=== PATIENT | male | born 1970 | race Caucasian/White ===

== ENCOUNTER 2022-05-16 16:22 | Emergency (ER) | payer OTHER, SELFPAY ==
[2022-05-16] VITALS (34 sets, daily range): BP systolic 116–205; BP diastolic 64–104; PULSE 81–109; RESP 16–36; TEMP 36.6–37.3; O2SAT 91–97
--- NOTE | ~2022-05-16 | CT_ITS ---
EXAMINATION: CT brain wo con DATE: 05/16/2022 17:15 INDICATION: Right sided weakness with numbness today. . TECHNIQUE: Computed tomography (CT) of the head was performed without intravenous contrast. The mA wa s adjusted according to patient size. Iterative reconstruction technique was employed. The dose-lengt h product was 605.33 mGy-cm. COMPARISON: None. FINDINGS: No acute intracranial hemorrhage or extra-axial fluid collection. No hydrocephalus, mass, or herniation. No acute ischemic infarct. Unremarkable dural venous sinus attenuation. No acute osseous abnormality. The aerated spaces are clear. Mild atrophy and chronic white matter change. Atherosclerotic intracranial calcification. 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 IMPRESSION: No acute intracranial process. Reviewed, dictated and finalized at location K. R MAIN INSPECTOR
--- NOTE | 2022-05-16 16:26 | ED.NEUROSD ---
HPI - Neuro Symptoms/Deficit General Chief Complaint: Weakness Stated Complaint: numbness to right abdomen and leg Time Seen by Provider: 05/16/22 16:25 Source: patient and RN notes reviewed Mode of arrival: ambulatory Limitations: no limitations History of Present Illness HPI Narrative: patient states that he went to bed last evening at 8:00 p.m.. He then woke up this morning at 8:00 a.m. and had numbness in his right abdomen right lower extremity right upper extremity mostly in his forearm and hand. He noticed some muscle wasting in his right hand that he says is new. He has not taken any of his blood pressure medicine for 2 months and just started taking blood pressure medicine yesterday. He is also a type 2 diabetic and not been on any medications for his diabetes in several months as well. He also has hyperlipidemia currently smoking 5 cigarettes per day. He also has stage III renal disease and peripheral neuropathy. He says he is not having any difficulty walking but does notice the right side of his body seems to be weaker than the left. He is not having any difficulty with speech. He denies any problems with mentation. Onset (ago): hour(s) (8) Location: right face, right arm and right leg History of same: No Severity: moderate Quality: weak and tingling Relieving factors: none Exacerbating factors: none Context: other ( unknown woke up this morning with symptoms) On Anticoagulants: No Associated symptoms: denies other symptoms Treatments Prior to Arrival: none Related Data Home Medications Medication Instructions Recorded Confirmed carvedilol 25 mg tablet 25 mg PO BID 05/16/22 05/16/22 furosemide 20 mg tablet 20 mg PO BID 05/16/22 05/16/22 lisinopril 40 mg tablet 40 mg PO DAILY 05/16/22 05/16/22 nifedipine 90 mg tablet,extended 90 mg PO DAILY 05/16/22 05/16/22 release spironolactone 25 mg tablet 25 mg PO DAILY 05/16/22 05/16/22 Allergies Allergy/AdvReac Type Severity Reaction Status Date / Time No Known Allergies Allergy Verified 05/16/22 16:50 Review of Systems Review of Systems: All systems reviewed & are unremarkable except as noted in HPI and below [facility] Past Medical History Medical History (Updated 05/17/22 @ 00:01 by Elizabeth Blanca) Hyperlipidemia Hypertension Morbid obesity Peripheral neuropathy Stage 3 chronic kidney disease Type 2 diabetes mellitus Surgical History Surgical History (Updated 05/16/22 @ 17:15 by Javan Vela MD) Hx of cholecystectomy Social History Social History (Updated 05/16/22 @ 16:33 by Javan Vela MD) Smoking packs per day: 0.25 Smoking cigarettes per day: 5.0 Smoking status: Current every day smoker Tobacco type: cigarettes Additional smoking assessment comments: patient states that he quit smoking for 17 years. Exam Const: General: healthy appearing, no acute distress and alert Nutritional Appearance: well nourished and obese Orientation/consciousness: patient oriented x3 Limitations: no limitations HENMT: Head: normal to inspection Ears: external ears normal Face/Nose/Sinus: Normal external nose present Mouth: Yes moist mucous membranes Eyes: Conjunctivae: conjunctivae normal Pupils: Equal, round and reactive pupils present EOM: EOMs intact bilaterally Neck: Neck: normal visual inspection Resp: Effort & Inspection: normal respiratory effort Auscultation: clear to auscultation bilaterally Cardio: Rate: tachycardic Rhythm: regular rhythm GI: GI Palp: Yes Soft to palpation and No Tenderness to palpation present (GI) Auscultation: normal bowel sounds Back/Spine/Pelvis: Cervical Spine: cervical ROM normal Thoracic/Lumbar Spine: thoraco-lumbar ROM normal Skin: General skin exam: normal color Rashes: no rashes Neuro: General: patient oriented x3, moves all extremities and CN's II-XI intact bilaterally Cranial nerves: Yes Nystagmus not present Speech: normal speech Course Consultations Consultation #1:
--- NOTE | 2022-05-16 16:47 | ECG_ITS ---
Measurements Intervals [place] Rate: 103 P: 18 GA: 147 QRS: -7 QRSD: 100 T: 110 QT: 330 QTc: 433 Interpretive Statements SINUS TACHYCARDIA LEFT VENTRICULAR HYPERTROPHY AND ST-T CHANGE BASELINE WANDER- V5-V6 BORDERLINE ECG NO PREVIOUS ECG AVAILABLE FOR COMPARISON Electronically Signed On 05-17-2022 6:45:15 SENIOR JAVASCRIPT ENGINEER by Ady Arnold D.O.
[2022-05-16 16:58] LABS: Hemoglobin 13.7 g/dL (14.0-18.0); Mean Corpuscular HGB Conc 33.4 g/dL (32.0-36.0); Mean Corpuscular Volume 86.9 fL (78.0-102.0); Mean Platelet Volume 9.7 fl (8.7-11.0); Platelet Count Result 183 K/mm3 (150-420); Red Blood Count 4.72 M/mm3 (4.70-6.10)
--- NOTE | 2022-05-16 16:58 | PC.NURSE ---
ASA HELD UNTIL HEAD CT RESULTS
--- NOTE | 2022-05-16 17:01 | PC.NURSE ---
PT TO CT AT THIS TIME. NO DYSPHAGIA AT THIS TIME DUE TO PT HAS FREQUENT DRY COUGH
[2022-05-16 17:13] LABS: Partial Thromboplastin Time 29.2 SEC (23.90-30.70); Prothrombin Time 11.2 Seconds (9.50-12.10)
[2022-05-16 17:15] LABS: Alanine Aminotransferase 27 U/L (16-63); Albumin Level 3.1 g/dL (3.4-5.0); Alkaline Phosphatase 105 U/L (46-116); Anion Gap 8 mmol/L (8-16); Aspartate Amino Transferase 29 U/L (15-37); Bilirubin,Total 0.2 mg/dL (0.00-1.00); Blood Urea Nitrogen 26 mg/dL (7-18); Calcium 8.1 mg/dL (8.5-10.1); Carbon Dioxide 28 mmol/L (21-32); Chloride 102 mmol/L (98-108); Estimated CRCL calculation 50 ml/min; Estimated Glomerular Filt Rate 32; Glucose 352 mg/dL (70-99); Osmolality Calculated 304 mOsm/kg (285-295); Potassium 4.1 mmol/L (3.5-5.1); Sodium 138 mmol/L (136-145); Total Protein 7.2 g/dL (6.4-8.2); Troponin I 17.2 ng/L (0.00-60.4)
[2022-05-16] MEDS: INSULIN HUMAN REGULAR (*BKC) 1,000 UNITS/10 ML VIAL 10 UNITS SUB-Q ×2 (17:18→19:17)
[2022-05-16] MEDS: cloNIDine HCL 0.1 MG TABLET 0.2 MG PO (17:20)
[2022-05-16 17:28] LABS: Band Neutrophils Percent 1 % (0-6); Basophils Absolute Manual 0.03 K/mm3 (0-0.1); Basophils Percent Manual 1 % (0-1); Eosinophils Absolute Manual 0.06 K/mm3 (0.02-0.5); Eosinophils Percent Manual 2 % (1-6); Lymphocytes Percent Manual 30 % (18-44); Monocytes Percent Manual 20 % (3-9); Neutrophils Absolute Manual 1.41 K/mm3 (1.3-6.7); Neutrophils Percent Manual 46 % (46-73); Total Cells Counted 100
[2022-05-16 17:29] LABS: Platelet Estimate Adequate (Adequate)
--- NOTE | 2022-05-16 17:29 | PC.NURSE ---
PT RETURNS FROM CT, HAS BEEN MEDICATED FOR ELEVATED BP AND BLOOD SUGAR, REPORTS BIG DATA ENGINEER IS OUT OF [facility].PT IS AWAITING CT RESULTS. NO CHANGE IN PT STATUS. WILL CONTINUE TO MONITOR.
[2022-05-16] MEDS: ASPIRIN 81 MG CHEWABLE TABLET 324 MG PO (17:32)
[2022-05-16 17:59] LABS: Influenza A QL RT-PCR Negative (Negative); Influenza B QL RT-PCR Negative (Negative); SARS-CoV-2 RNA PCR Negative (Negative)
--- NOTE | 2022-05-16 18:34 | PC.NURSE ---
PT AND FAMILY ARE AWARE OF PLAN OF CARE. PT HAS SIGNED TRANSFER PAPERWORK. FAMILY HAVE LEFT FOR THE EVENING, AWARE OF PLAN TO TRANSFER TO [facility]. PT IS AWAITING RETURN CALL FROM HOSPITALIST AND ROOM ASSIGNMENT. WILL CONTINUE TO MONITOR. NO CHANGE IN PT STATUS. PT CONTINUES TO REPORT NUMBNESS AND TINGLING TO RT FOREARM, HAND, ABD, THIGH. PT HAS CLEAR SPEECH NOTED, NO FACIAL DROOP IS PRESENT, HOWEVER WHEN PT PUFFS OUT HIS CHEEKS A DROOP IS NOTED TO LEFT SIDE. PT HAS A WEAKER SALES SERVICE REP TO RT HAND AND RT ARM AND LEG DO DRIFT WITH EXAM. NO CHANGES DURING ER VISIT. WILL CONTINUE TO MONITOR.
--- NOTE | 2022-05-16 18:44 | PC.NURSE ---
PT HAS BEEN ACCEPTED TO [facility] AWAITING ROOM ASSIGNMENT FOR TRANSFER.
--- NOTE | 2022-05-16 19:09 | PC.NURSE ---
Report received, pt resting and watching TV, has no c/o at this time. VSS, call gross at pt side. Awaiting call back from [facility] for bed assignment and report.
[2022-05-16] MEDS: BENZONATATE 100 MG CAPSULE 200 MG PO (19:14)
[2022-05-16 19:18] LABS: Glucose Point of Care 335 mg/dl (65-105)
[2022-05-16 20:03] LABS: Glucose Point of Care 308 mg/dl (65-105)
--- NOTE | 2022-05-16 20:04 | PC.NURSE ---
Call back to [facility], update given and awaiting call back for bed assignment and report. Pt resting, no changes in condition, no c/o.
--- NOTE | 2022-05-16 20:16 | PC.NURSE ---
Call back from [facility] bed and report given to Gisel, call paged to [facility] for pt transfer, VSS. Pt aware of POC for transfer.
== END 2022-05-16 19:40 | disposition short-term general hospital (02) ==
PROVIDERS: Emergency Provider Emergency Medicine; PCP Family Medicine
DX: I63.9 Cerebral infarction, unspecified (principal); E78.5 Hyperlipidemia, unspecified; I12.9 Hypertensive chronic kidney disease with stage 1 through stage 4 chronic kidney disease, or unspecified chronic kidney disease; E11.22 Type 2 diabetes mellitus with diabetic chronic kidney disease; N18.30 Chronic kidney disease, stage 3 unspecified; F17.210 Nicotine dependence, cigarettes, uncomplicated; Z20.822 Contact with and (suspected) exposure to COVID-19
CPT/HCPCS: 36415; 70450; 80053; 82948; 84484; 85025; 85610; 85730; 87636; 93005; 99284; 99285; A9270; J1815

== ENCOUNTER 2024-02-20 08:37 | Inpatient (IN) | payer MEDICARE, SELFPAY ==
--- NOTE | ~2024-02-20 | CT_ITS ---
EXAMINATION: CT pelvis wo con DATE: 02/20/2024 11:08 INDICATION: Right inguinal abscess. TECHNIQUE: Computed tomography (CT) of the pelvis was performed without intravenous contrast. Automat ed exposure control and iterative reconstruction technique were employed. The dose-length product was 567.82 mGy-cm. COMPARISON: None FINDINGS: There is diverticulosis of the colon without evidence of diverticulitis. There are no dilat ed loops of bowel. The appendix is normal. There are no pathologically enlarged lymph nodes. There is no free intraperitoneal fluid. There is fat stranding in the right inguinal region, consistent with cellulitis. Branching soft tissue attenuation in this area may be a sinus tract. There is moderate bhavya mbar spondylosis. IMPRESSION: 1. Cellulitis in the right inguinal region with possible sinus tract. No significant drainable absces s. Reviewed, dictated and finalized at location A. NT SERVICES ACCOUNT MANAGER IMPRESSION: 1. Cellulitis in the right inguinal region with possible sinus tract. No signif icant drainable abscess.
[2024-02-20 08:54] VITALS: BP 181/93; PULSE 95; RESP 18; TEMP 36.6; O2SAT 100
--- NOTE | 2024-02-20 09:21 | ED.SKABFB ---
HPI - Skin/Abscess/Foreign Bdy General Chief complaint: Skin/Abscess/Foreign Body <Rocio Posada PA-C - Last Filed: 02/20/24 12:47> Stated complaint: lower right abd knot and pain <MARIELA Hernandez Last Filed: 02/20/24 12:47> Time Seen by Provider: 02/20/24 09:02 <MARIELA Hernandez Last Filed: 02/20/24 12:47> Source: patient <MARIELA Hernandez Last Filed: 02/20/24 12:47> Mode of arrival: ambulatory <MARIELA Hernandez Last Filed: 02/20/24 12:47> Limitations: no limitations <MARIELA Hernandez Last Filed: 02/20/24 12:47> History of Present Illness HPI narrative: Patient is a 53-year-old male, with PMH of CKD, DM, who presents the ED with report of infection to his right inguinal region. Patient reports he 1st noticed a pimple like region to his right inguinal region/suprapubic region 6-7 days ago. He states began looking inflamed over the last couple of days. He saw his PCP 3 days ago and was given abx, but denies improvement. Unsure of name of abx. Reports increased pressure and redness extending toward scrotal region. Denies testicular pain or swelling. Denies difficulty urinating, penile drainage. Denies fevers. Patient has not been checking his sugars at home. <MARIELA Hernandez Last Filed: 02/20/24 12:47> Related Data Home medications: Home Medications Medication Instructions Recorded Confirmed carvedilol 25 mg tablet 25 mg PO BID 05/16/22 02/20/24 furosemide 20 mg tablet 20 mg PO BID 05/16/22 05/16/22 lisinopril 40 mg tablet 40 mg PO DAILY 05/16/22 05/16/22 nifedipine 90 mg tablet,extended 90 mg PO DAILY 05/16/22 05/16/22 release spironolactone 25 mg tablet 25 mg PO DAILY 05/16/22 05/16/22 empagliflozin 10 mg tablet 10 mg PO DAILY 02/20/24 02/20/24 (Jardiance) insulin glargine 100 unit/mL 15 unit subcut HS 02/20/24 02/20/24 subcutaneous solution (Lantus U-100 Insulin) <Rocio Posada PA-C - Last Filed: 02/20/24 12:47> Allergies/Adverse reactions: Allergies Allergy/AdvReac Type Severity Reaction Status Date / Time No Known Allergies Allergy Verified 02/20/24 13:54 <Rocio Posada PA-C - Last Filed: 02/20/24 12:47> Review of Systems Review of Systems: All systems reviewed & are unremarkable except as noted in HPI. <Rocio Posada PA-C - Last Filed: 02/20/24 12:47> All systems reviewed & are unremarkable except as noted in HPI and below <Rocio Posada PA-C - Last Filed: 02/20/24 12:47> [facility] Past Medical History Medical History: Medical History (Updated 02/20/24 @ 13:28 by Nemo Walton, WERO) Hyperlipidemia Hypertension Morbid obesity Peripheral neuropathy Stage 3 chronic kidney disease Type 2 diabetes mellitus <Rocio Posada PA-C - Last Filed: 02/20/24 12:47> Surgical History Surgical History: Surgical History Hx of cholecystectomy <Rocio Posada PA-C - Last Filed: 02/20/24 12:47> Social History Social History: Social History Smoking packs per day: 0.25 Smoking cigarettes per day: 5.0 Smoking status: Never smoker Tobacco type: cigarettes Additional smoking assessment comments: patient states that he quit smoking for 17 years. Alcohol intake: never Substance use: never Do You Feel Safe in your Home?: Yes Lack of Transportation: No Lack of Food: Never True Current Housing: I Have Housing Concerned About Future Housing: No Difficulty Paying Gas/Electric Bills: No Difficulty Paying for Meds: YES Currently Unemployed: No Education: Grade School Difficulty w/ Childcare or Family Care: No Spiritual care concerns: No <Rocio Posada PA-C - Last Filed: 02/20/24 12:47> Exam Narrative: GENERAL: Somewhat disheveled appearing, appears older than stated age, non-toxic, in no acute distress. HEAD: Normocephalic, atraumatic. RESPIRATORY: Airway patent, respirations nonlabored. Clear to auscultation bilaterally, no rales, rhonchi, wheezing. CARDIOVASCULAR: Regular rate and rhythm MUSCULOSKELETAL: Moves all extremities. No gross deformities. SKIN: Warm, dry, normal color. Right-sided inguinal/suprapubic region with scabbed pustular lesion with significant underlying induration, focal tenderness to palpation. No appreciable fluctuance. No active drainage. Erythema surrounding lesion and extending toward R lateral hip space, extending slightly into right-sided inguinal folds down towards scrotum. There does not appear to be any perineal erythema or inflammation. No swelling or erythema of scrotum. No penile drainage. Circumcised penis. NEURO: A&O X3. Speech clear. PSYCHIATRIC: Appropriate mood and affect. Normal interaction. <Rocio Posada PA-C - Last Filed: 02/20/24 12:47> Course SAWYER HELPER/PA Physician Supervision For this patient encounter, I reviewed the SAWYER HELPER or PA documentation, treatment plan, and medical decision making; and I had [id number] time with this patient. <Jorgito Krueger MD - Last Filed: 02/20/24 18:50> Vital Signs Vital signs: Vital Signs Temperature 97.8 F 02/20/24 08:54 Pulse Rate 95 02/20/24 08:54 Respiratory Rate 18 02/20/24 08:54 Blood Pressure 181/93 H 02/20/24 08:54 Pulse Oximetry 100 02/20/24 08:54 Temperature 98.0 F 02/20/24 14:00 Pulse Rate 100 02/20/24 14:00 Respiratory Rate 16 02/20/24 14:00 Blood Pressure 172/92 H 02/20/24 14:00 Pulse Oximetry 97 02/20/24 15:26 Oxygen Delivery Room Air 02/20/24 14:20 <Rocio Posada PA-C - Last Filed: 02/20/24 12:47> Vital Signs Temperature 97.8 F 02/20/24 08:54 Pulse Rate 95 02/20/24 08:54 Respiratory Rate 18 02/20/24 08:54 Blood Pressure 181/93 H 02/20/24 08:54 Pulse Oximetry 100 02/20/24 08:54 Temperature 98.0 F 02/20/24 14:00 Pulse Rate 100 02/20/24 14:00 Respiratory Rate 16 02/20/24 14:00 Blood Pressure 172/92 H 02/20/24 14:00 Pulse Oximetry 97 02/20/24 15:26 Oxygen Delivery Room Air 02/20/24 14:20 <Jorgito Krueger MD - Last Filed: 02/20/24 18:50> MDM - Skin/Abscess/Foreign Bdy MDM Narrative Medical decision making narrative: Patient presented to ED with infection to right inguinal region. Exam concerning for cellulitis with possible abscess formation. No significant palpable fluctuance appreciated on exam. Will obtain lab and imaging to further evaluate. Vital signs are stable. Patient is afebrile here. Mildly hypertensive. He does have history of this. Potentially pain related as well. Given pain medicine in the ED. CBC without leukocytosis. Hemoglobin stable but slightly low at 11. No recent records to compare to. CMP with mostly stable electrolytes, blood glucose mildly elevated to 153. Creatinine 2.7 today. patient does report history of CKD. No recent records to compare to. Records from last year did show creatinine of 2.1. Patient given fluids in the ED. Lactic acid WNL at 0.8. Inflammatory markers are elevated. CT pelvis was obtained and showing R inguinal cellulitis with sinus tracking. No evidence of drainable abscess. patient was updated on lab and imaging findings. Given presence of sinus tracking, failed outpatient therapy, in the setting of a poorly controlled diabetic, will admit for further evaluation cellulitis, IV antibiotics. Vancomycin started in the ED. Blood cultures were obtained. Discussed case with Nemo Walton NP hospitalist, accepted patient for admission. Patient in agreement with plan and need for admission. <Rocio oPsada PA-C - Last Filed: 02/20/24 12:47> Medical Records Attestation: I reviewed the patient's medical records. <Rocio Posada PA-C - Last Filed: 02/20/24 12:47> Lab Data Attestation: I reviewed the patient's lab results. <Rocio Posada PA-C - Last Filed: 02/20/24 12:47> Result diagrams: 02/20/24 10:11 02/20/24 10:11 <Rocio Posada PA-C - Last Filed: 02/20/24 12:47> Labs: Lab Results 02/20/24 02/20/24 Range/Units 10:10 10:11 WBC 6.3 (4.5-10.0) K/mm3 RBC 3.93 L (4.6-6.20) M/mm3 Hgb 11.0 L (14.0-18.0) g/dL Hct 34.0 L (42.0-52.0) % MCV 86.5 (80-100) fl MCH 28.0 (26-34) pg MCHC 32.4 (32-36) g/dl RDW 14.4 (11.5-14.5) % Plt Count 223 (150-375) k/mm3 MPV 9.3 (7.4-10.4) fl Immature Gran % (Auto) 0.5 (0-0.5) % Neut % (Auto) 76.7 H (45.5-73.1) % Lymph % (Auto) 9.9 L (18.3-44.2) % [place] % (Auto) 9.9 H (2.6-8.5) % Eos % (Auto) 2.4 (0-4.4) % Baso % (Auto) 0.6 (0.2-1.2) % Lymph # (Auto) 0.63 L (0.9-3.2) K/mm3 [place] # (Auto) 0.6 (0.1-0.6) K/mm3 Eos # (Auto) 0.2 (0-0.3) K/mm3 Baso # (Auto) 0.0 (0.0-0.1) K/mm3 Abs Immat Gran (auto) 0.03 (0.00-0.031) K/mm3 Absolute Neuts (auto) 4.9 (1.3-6.7) K/mm3 Absolute Nucleated RBC 0.000 (0.0-0.012) K/mm3 Nucleated RBC % 0.0 (0.0-0.2) % Sodium 136 L (137-145) mmol/L Potassium 4.2 (3.4-5.0) mmol/L Chloride 107 (98-107) mmol/L Carbon Dioxide 21 L (22-30) mmol/L Anion Gap 8 (4-12) mmol/L BUN 42 H (9-20) mg/dL Creatinine 2.70 H (0.7-1.3) mg/dL Estim Creat Clear Calc 30 ml/min Estimated GFR 25 L (59 - ) Glucose 153 H (65-110) mg/dL Hemoglobin A1c Pending Lactic Acid 0.8 (0.7-2.0) mmol/L Calcium 8.2 L (8.4-10.2) mg/dL Total Bilirubin 0.5 (0.2-1.3) mg/dL AST 12 L (17-59) U/L ALT 7 (6-50) U/L Alkaline Phosphatase 96 (38-126) U/L C-Reactive Protein 12.9 H (<1.0) mg/dL Total Protein 7.0 (6.3-8.2) g/dL Albumin 3.8 (3.5-5.1) g/dL <Rocio Posada PA-C - Last Filed: 02/20/24 12:47> Lab Results 02/20/24 02/20/24 Range/Units 10:10 10:11 WBC 6.3 (4.5-10.0) K/mm3 RBC 3.93 L (4.6-6.20) M/mm3 Hgb 11.0 L (14.0-18.0) g/dL Hct 34.0 L (42.0-52.0) % MCV 86.5 (80-100) fl MCH 28.0 (26-34) pg MCHC 32.4 (32-36) g/dl RDW 14.4 (11.5-14.5) % Plt Count 223 (150-375) k/mm3 MPV 9.3 (7.4-10.4) fl Immature Gran % (Auto) 0.5 (0-0.5) % Neut % (Auto) 76.7 H (45.5-73.1) % Lymph % (Auto) 9.9 L (18.3-44.2) % [place] % (Auto) 9.9 H (2.6-8.5) % Eos % (Auto) 2.4 (0-4.4) % Baso % (Auto) 0.6 (0.2-1.2) % Lymph # (Auto) 0.63 L (0.9-3.2) K/mm3 [place] # (Auto) 0.6 (0.1-0.6) K/mm3 Eos # (Auto) 0.2 (0-0.3) K/mm3 Baso # (Auto) 0.0 (0.0-0.1) K/mm3 Abs Immat Gran (auto) 0.03 (0.00-0.031) K/mm3 Absolute Neuts (auto) 4.9 (1.3-6.7) K/mm3 Absolute Nucleated RBC 0.000 (0.0-0.012) K/mm3 Nucleated RBC % 0.0 (0.0-0.2) % Sodium 136 L (137-145) mmol/L Potassium 4.2 (3.4-5.0) mmol/L Chloride 107 (98-107) mmol/L Carbon Dioxide 21 L (22-30) mmol/L Anion Gap 8 (4-12) mmol/L BUN 42 H (9-20) mg/dL Creatinine 2.70 H (0.7-1.3) mg/dL Estim Creat Clear Calc 30 ml/min Estimated GFR 25 L (59 - ) Glucose 153 H (65-110) mg/dL Hemoglobin A1c Pending Lactic Acid 0.8 (0.7-2.0) mmol/L Calcium 8.2 L (8.4-10.2) mg/dL Total Bilirubin 0.5 (0.2-1.3) mg/dL AST 12 L (17-59) U/L ALT 7 (6-50) U/L Alkaline Phosphatase 96 (38-126) U/L C-Reactive Protein 12.9 H (<1.0) mg/dL Total Protein 7.0 (6.3-8.2) g/dL Albumin 3.8 (3.5-5.1) g/dL <Jorgito Krueger MD - Last Filed: 02/20/24 18:50> Imaging Data Attestation: I personally reviewed and interpreted this imaging study as follows: <MARIELA Hernandez Last Filed: 02/20/24 12:47> Radiologist's impression: ITS Impressions Pelvis CT 02/20/24 11:19 IMPRESSION: 1. Cellulitis in the right inguinal region with possible sinus tract. No significant drainable abscess. <MARIELA Hernandez Last Filed: 02/20/24 12:47> Discharge Plan Discharge Clinical Impression: Cellulitis of right groin, NICOLE (acute kidney injury) Diabetes mellitus Qualifiers: Diabetes mellitus type: type 2 Diabetes mellitus manager long term care insulin use: with manager long term care use Diabetes mellitus complication status: with hyperglycemia Qualified Code(s): E11.65 - Type 2 diabetes mellitus with hyperglycemia <MARIELA Hernandez Last Filed: 02/20/24 12:47> Patient Disposition: Still a Patient <MARIELA Hernandez Last Filed: 02/20/24 12:47> Condition: Stable <MARIELA Hernandez Last Filed: 02/20/24 12:47>
[2024-02-20] MEDS: ONDANSETRON INJ 4 MG/2 ML VIAL IV PUSH (10:21)
[2024-02-20] MEDS: MORPHINE SULFATE (*CRX) 4 MG/ML INJ IV PUSH (10:23)
[2024-02-20 10:28] LABS: Basophils Percent Auto 0.6 % (0.2-1.2); Eosinophils Absolute Auto 0.2 K/mm3 (0-0.3); Eosinophils Percent Auto 2.4 % (0-4.4); Immature Granulocyte Absolute 0.03 K/mm3 (0.00-0.031); Immature Granulocyte Percent A 0.5 % (0-0.5); Lymphocytes Absolute Auto 0.63 K/mm3 (0.9-3.2); Lymphocytes Percent Auto 9.9 % (18.3-44.2); Mean Corpuscular HGB Conc 32.4 g/dl (32-36); Mean Corpuscular Volume 86.5 fl (80-100); Mean Platelet Volume 9.3 fl (7.4-10.4); Monocytes Absolute Auto 0.6 K/mm3 (0.1-0.6); Monocytes Percent Auto 9.9 % (2.6-8.5); Neutrophils Absolute Auto 4.9 K/mm3 (1.3-6.7); Neutrophils Percent Auto 76.7 % (45.5-73.1); Platelet Count Result 223 k/mm3 (150-375); Red Blood Count 3.93 M/mm3 (4.6-6.20); Red Cell Distribution Width 14.4 % (11.5-14.5); White Blood Count 6.3 K/mm3 (4.5-10.0)
[2024-02-20 10:46] LABS: Lactic Acid Reflex 0.8 mmol/L (0.7-2.0)
[2024-02-20 10:49] LABS: Alanine Aminotransferase 7 U/L (6-50); Albumin Level 3.8 g/dL (3.5-5.1); Alkaline Phosphatase 96 U/L (38-126); Anion Gap 8 mmol/L (4-12); Aspartate Amino Transferase 12 U/L (17-59); Bilirubin,Total 0.5 mg/dL (0.2-1.3); Blood Urea Nitrogen 42 mg/dL (9-20); Calcium 8.2 mg/dL (8.4-10.2); Carbon Dioxide 21 mmol/L (22-30); Chloride 107 mmol/L (98-107); Estimated CRCL calculation 30 ml/min; Estimated Glomerular Filt Rate 25; Glucose 153 mg/dL (65-110); Potassium 4.2 mmol/L (3.4-5.0); Sodium 136 mmol/L (137-145)
[2024-02-20 11:09] LABS: CRP 12.9 mg/dL (<1.0)
[2024-02-20] MEDS: SODIUM CHLORIDE 0.9% IV 1,000 ML 999 ML IV CONT (11:10)
[2024-02-20] MEDS: VANCOMYCIN 1,500 MG/NS 500 ML 1,500 MG/500 ML BAG 250 MG IVPB (12:41)
--- NOTE | 2024-02-20 12:42 | PC.NURSE ---
Pt reports 0/10 pain and no nausea at this time. PRNs not administered d/t pt. condition.
[2024-02-20 12:44] VITALS: BP 119/105; PULSE 99; RESP 16; O2SAT 99
--- NOTE | 2024-02-20 13:19 | PM.IMHP ---
H&P: HPI History of Present Illness Date/Time: 02/20/24 13:19 Chief Complaint: Skin Redness and Pain, Abdominal Pain Narrative: 53 y/o M presents here with complaints of a right abdominal not and pain with PMH of hyperlipidemia, hypertension, obesity, peripheral neuropathy, CKD D stage III, and type 2 diabetes. The patient presents here from home for further evaluation of right lower abdominal pain and sensation of a knot in same region. He reports he initially noted a pimple-like region to his right inguinal/suprapubic region approximately 6-7 days ago. He initially tried to pop region. He was able to express a small amount of white fluid. Same region then began to develop erythema and increased tenderness. He initially sought care with his PCP on 02/17 (Mon). He was given a shot of penicillin and prescribed an oral course of abx (nothing listed in outside med rec), filled script yesterday and has taken 3 doses. Despite antibiotic use, the region has had no improvement in redness, tenderness, or size. He has now also developed pressure and erythema that is tracking towards his scrotal region. No associated testicular pain, testicular swelling, fever, dysuria, discharge, chills, or body aches. Has had a previous skin infection years ago, told it was MRSA. Patient has a history of type 2 diabetes for which he is on Jardiance and Lantus. The patient reports he does not regularly check his blood sugar at home. Reports that once a month he will travel and will not take his diabetes medications for a week. Patient is also supposed to be on Lantus but reports he is unable to afford this medication at this time. He reported to the bedside RN that his insurance showed kick in next week some time and he should be able to fill this. Last dose of Lantus was over a week ago. Patient follows with a assembly repairer, believes her name is Sophia. Has previously been told that he is Stage 4 and one stage away from dialysis. Sees Josh MICHELE for his endocrine care. Initial VS at presentation: 97.8? F, HR 95, RR 18, 181/93, and 100% on RA. ED workup showed: No leukocytosis, hemoglobin 11.0, creatinine 2.7 and GFR 25 (previously 2.14 and GFR 32 in 04/2022), calcium 8.2, glucose 153, CRP 12.9. Pelvic CT showed cellulitis of the right ankle region with possible sinus tract, no significant drainable abscess. Review of Systems Review of Systems: All systems reviewed & are unremarkable except as noted in HPI and below PMFSH Past Medical History Medical History (Updated 02/20/24 @ 13:28 by Nemo Walton APRN) Hyperlipidemia Hypertension Morbid obesity Peripheral neuropathy Stage 3 chronic kidney disease Type 2 diabetes mellitus Surgical History Surgical History Hx of cholecystectomy Social History Social History Smoking packs per day: 0.25 Smoking cigarettes per day: 5.0 Smoking status: Never smoker Tobacco type: cigarettes Additional smoking assessment comments: patient states that he quit smoking for 17 years. Alcohol intake: never Substance use: never Do You Feel Safe in your Home?: Yes Lack of Transportation: No Lack of Food: Never True Current Housing: I Have Housing Concerned About Future Housing: No Difficulty Paying Gas/Electric Bills: No Difficulty Paying for Meds: YES Currently Unemployed: No Education: Grade School Difficulty w/ Childcare or Family Care: No Spiritual care concerns: No Meds Home Medications and Allergies Home Medications Medication Instructions Recorded Confirmed Type carvedilol 25 mg tablet 25 mg PO BID 05/16/22 02/20/24 History furosemide 20 mg tablet 20 mg PO BID 05/16/22 05/16/22 History lisinopril 40 mg tablet 40 mg PO DAILY 05/16/22 05/16/22 History nifedipine 90 mg tablet,extended 90 mg PO DAILY 05/16/22 05/16/22 History release spironolactone 25 mg tablet 25 mg PO DAILY 05/16/22 05/16/22 History empagliflozin 10 mg tablet 10 mg PO DAILY 02/20/24 02/20/24 History (Jardiance) insulin glargine 100 unit/mL 15 unit subcut HS 02/20/24 02/20/24 History subcutaneous solution (Lantus U-100 Insulin) Allergies Allergy/AdvReac Type Severity Reaction Status Date / Time No Known Allergies Allergy Verified 02/20/24 13:54 Vital Signs Vital Signs - 24 hr 02/20/24 08:54 02/20/24 12:44 Temperature 97.8 F Pulse Rate 95 99 Respiratory Rate 18 16 Blood Pressure 181/93 H 119/105 H Pulse Oximetry 100 99 Exam Const: General: comfortable and no acute distress Other: , male, nontoxic appearance HENMT: Face/Nose/Sinus: Normal nares present Mouth: Yes moist mucous membranes Eyes: General: appearance normal, both eyes and all related structures Sclera: sclerae normal Pupils: Equal, round and reactive pupils present EOM: EOMs intact bilaterally Resp: Effort & Inspection: normal respiratory effort Auscultation: clear to auscultation bilaterally Cardio: Rate: regular rate Rhythm: regular rhythm Other: S1-S2 present without murmur, rub, ectopy GI: Other: Abdomen soft, nondistended, nontender. Normoactive bowel sounds in all quadrants. Skin: General skin exam: normal color and no rashes or lesions noted Wounds: wounds noted Other: Indurated region to right pubic region without groin involvement or streaking. Linear shape running vertically. Approximately 5-6vwy9-2ml. No open regions or drainage. Mild erythema.+tenderness. Neuro: General: gait normal Speech: normal speech Motor exam (neuro): 5/5 motor strength present throughout Sensory Exam: normal sensation Other: A&O x4 Extrem: General: normal to inspection Psych: Mental Status: mental status grossly normal Affect: normal affect Other: Fair insight and judgment, pleasant H&P: Results Labs Labs: Short CBC 02/20/24 Range/Units 10:11 WBC 6.3 (4.5-10.0) K/mm3 Hgb 11.0 L (14.0-18.0) g/dL Hct 34.0 L (42.0-52.0) % Plt Count 223 (150-375) k/mm3 [facility] 02/20/24 10:11 Sodium 136 L Potassium 4.2 Chloride 107 Carbon Dioxide 21 L BUN 42 H Creatinine 2.70 H Glucose 153 H Calcium 8.2 L Liver Function 02/20/24 Range/Units 10:11 Total Bilirubin 0.5 (0.2-1.3) mg/dL AST 12 L (17-59) U/L ALT 7 (6-50) U/L Alkaline Phosphatase 96 (38-126) U/L Albumin 3.8 (3.5-5.1) g/dL Assessment and Plan Assessment and plan (1) Cellulitis of right groin: Code(s): L03.314 - Cellulitis of groin Status: Acute Assessment and Plan: - did not meet SIRS criteria, HR only. lactic 0.8. blood cultures were obtained, follow. - CT pelvis: cellulitis in the right inguinal region with possible sinus tract. No significant drainable abscess. - WBC 6.3, CRP 12.9. trend. - started on Vancomycin on 02/19 - wound culture if obtainable, no open wound at present - tight glycemic control (2) Acute kidney injury superimposed on CKD: Code(s): N17.9 - Acute kidney failure, unspecified; N18.9 - Chronic kidney disease, unspecified Status: Acute Assessment and Plan: - unclear if NICOLE superimposed on CKD verses patient's baseline, most recent lab work over a year ago - creatinine 2.7 and GFR 25, previously 2.14 and GFR 32 on 05/16/2022 - add CK, urine sodium, urine protein, urine creatinine, protein/creatinine - UA ordered - bladder scan for postvoid residual - monitor I&Os - will hold on nephrology consultation given this is likely patient's baseline with his history of CKD stage 4 - trend renal function - trend electrolytes, correct as needed (3) Diabetes mellitus: Qualifiers: Diabetes mellitus complication status: with hyperglycemia Diabetes mellitus long term care administrator insulin use: with long term care administrator use Diabetes mellitus type: type 2 Qualified Code(s): E11.65 - Type 2 diabetes mellitus with hyperglycemia; Z79.4 - exterminator (current) use of insulin Code(s): E11.9 - Type 2 diabetes mellitus without complications Status: Chronic Assessment and Plan: - hypoglycemia protocol - POC blood glucose ACHS - home medication: Jardiance 10 mg daily, Lantus 15 units HS - correct regimen ordered - moderate dose TIDWM, based off BMI - A1C ordered, none on file - nurse informatics educator consulted for re-education (4) Hypertension: Qualifiers: Hypertension type: unspecified Qualified Code(s): I10 - Essential (primary) hypertension Code(s): I10 - Essential (primary) hypertension Status: Chronic Assessment and Plan: - chronic, currently 119/105 - continue home medications: Carvedilol 25 mg b.i.d. - monitor Plan Diet: Diabetic GI Prophylaxis: Not currently indicated DVT Prophylaxis: SCDs Lines: Peripheral Code Status: Full code Quality VTE Prophylaxis VTE prophylaxis: mechanical ordered Hospitalist MIPS Advance Care Plan I have confirmed that the patient's Advanced Care Plan is present, code status is documented, or surrogate decision maker is listed in patient medical record.: Yes Medication Reconciliation I have utilized all available resources to obtain, update and review the patients current medications (includes all prescriptions, OTC, herbals, cannabis, and nutritional supplements).: Yes
[2024-02-20 13:40] VITALS: BMI 30.7
--- NOTE | 2024-02-20 13:40 | ADMGEN ---
This patient, Tate Quick, was admitted to [facility] Surg Room 304-02. Patient/family oriented to hospital policies and general routines including ID bracelet, bed and alarms, visiting hours, pain management, procedures, bathroom and other care routines, personal items, smoking policy, room service/diet, and visiting hours. Information on how to activate the Rapid Response Team has been discussed. Patient/Family are encouraged to report perceived risks to care and to ask questions if they do not understand what they are told or what they should do.
[2024-02-20 14:00] VITALS: BP 172/92; PULSE 100; RESP 16; TEMP 36.7; O2SAT 88
--- NOTE | 2024-02-20 14:11 | PC.NURSE ---
Patient unsure of medications during admission. He thinks that he takes Jardiance and Carvedolol, but he wasn't positive. He also told me that he did not have any financial concerns, and then told me that he was unable to afford his lantus until his insurance kicks in next month. 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
[2024-02-20] MEDS: HYDROcodone/acetaminophen (*CRX) 5-325 MG TABLET 1 TAB PO ×2 (14:25→20:53)
[2024-02-20 14:49] LABS: Creatine Kinase 37 U/L (55-170)
[2024-02-20 15:26] VITALS: O2SAT 97
[2024-02-20 16:15] VITALS: BMI 30.7
[2024-02-20 17:02] LABS: Glucose Point of Care 114 mg/dl (65-105)
[2024-02-20] MEDS: carvediloL 25 MG TABLET PO (17:12)
[2024-02-20 18:35] LABS: Add Urine Microscopic? YES; Appearance Urine Clear (Clear); Bacteria Urine None Seen /hpf; Bilirubin Urine Negative (Negative); Blood Urine Negative (Negative); Color Urine Yellow (Yellow); Glucose Urine UA Trace mg/dL (Negative); Ketones Urine Negative (Negative); Leukocyte Esterase Ur Negative LEU/UL (Negative); Nitrate Urine Negative (Negative); Non Pathogenic Casts 0-2; Protein Urine 3+ mg/dL (Negative); RBC Urine 0-2 /hpf (0-2); Specific Grav Ur 1.016 (1.001-1.035); Squamous Epithelial Cell Urine None Seen /hpf (Few); Urobilinogen Urine 0.2 mg/dL (<2.0); WBC Urine 0-5 /hpf (0-3); pH Urine 5.5 (5.0-9.0)
[2024-02-20 18:41] LABS: Creatinine Urine 77.6 mg/dL
[2024-02-20 18:43] LABS: Sodium Urine Random 124 meq/L
[2024-02-20 18:58] LABS: Total Protein Urine Random 340 mg/dL
[2024-02-20 20:26] LABS: Glucose Point of Care 200 mg/dl (65-105)
[2024-02-20] MEDS: INSULIN GLARGINE (*BKC) 100 UNITS/ML 15 UNITS SUB-Q (20:30)
[2024-02-20 22:00] VITALS: BP 112/49; PULSE 75; RESP 16; TEMP 36.4; O2SAT 97
[2024-02-20 22:38] LABS: Hemoglobin A1C 6.3 % (<5.7)
[2024-02-21 05:55] VITALS: BP 159/70; PULSE 89; RESP 18; TEMP 36.4; O2SAT 99
[2024-02-21 06:27] LABS: Basophils Absolute Auto 0.1 K/mm3 (0.0-0.1); Basophils Percent Auto 1.3 % (0.2-1.2); Eosinophils Absolute Auto 0.2 K/mm3 (0-0.3); Eosinophils Percent Auto 3.2 % (0-4.4); Hematocrit 31.5 % (42.0-52.0); Hemoglobin 9.9 g/dL (14.0-18.0); Immature Granulocyte Absolute 0.02 K/mm3 (0.00-0.031); Immature Granulocyte Percent A 0.4 % (0-0.5); Lymphocytes Absolute Auto 0.71 K/mm3 (0.9-3.2); Lymphocytes Percent Auto 15.3 % (18.3-44.2); Mean Corpuscular HGB Conc 31.4 g/dl (32-36); Mean Corpuscular Hemoglobin 27.7 pg (26-34); Mean Corpuscular Volume 88.2 fl (80-100); Mean Platelet Volume 9.1 fl (7.4-10.4); Monocytes Absolute Auto 0.5 K/mm3 (0.1-0.6); Monocytes Percent Auto 11.4 % (2.6-8.5); Neutrophils Absolute Auto 3.2 K/mm3 (1.3-6.7); Neutrophils Percent Auto 68.4 % (45.5-73.1); Platelet Count Result 201 k/mm3 (150-375); Red Blood Count 3.57 M/mm3 (4.6-6.20); Red Cell Distribution Width 14.5 % (11.5-14.5); White Blood Count 4.7 K/mm3 (4.5-10.0)
[2024-02-21] MEDS: HYDROcodone/acetaminophen (*CRX) 5-325 MG TABLET 1 TAB PO ×3 (06:32→18:41)
--- NOTE | 2024-02-21 06:46 | PC.NURSE ---
Pt has been noncompliant with using urinal, or letting us know when he needs to or has urinated, bladder shows 315ml, he reports he just went to the bathroom, Im not here for my bladder, just leave me alone .
[2024-02-21 06:57] LABS: Anion Gap 6 mmol/L (4-12); Blood Urea Nitrogen 43 mg/dL (9-20); CRP 6.6 mg/dL (<1.0); Calcium 8.1 mg/dL (8.4-10.2); Carbon Dioxide 23 mmol/L (22-30); Chloride 108 mmol/L (98-107); Estimated CRCL calculation 29 ml/min; Estimated Glomerular Filt Rate 20; Glucose 104 mg/dL (65-110); Potassium 4.7 mmol/L (3.4-5.0); Sodium 137 mmol/L (137-145)
[2024-02-21 07:50] LABS: Glucose Point of Care 97 mg/dl (65-105)
[2024-02-21] MEDS: carvediloL 25 MG TABLET PO ×2 (09:02→16:58)
[2024-02-21] MEDS: EMPAGLIFLOZIN 10 MG TABLET PO (09:02)
--- NOTE | 2024-02-21 09:32 | P.PNIM_ITS ---
Progress Note: A&P Assessment and Plan (1) Cellulitis of right groin: Code(s): L03.314 - Cellulitis of groin Status: Acute Assessment and Plan: - did not meet SIRS criteria, HR only. lactic 0.8. blood cultures were obtained, follow. - CT pelvis: cellulitis in the right inguinal region with possible sinus tract. No significant drainable abscess. - WBC 6.3, CRP 12.9. trend. - started on Vancomycin on 02/19-continue - wound culture if obtainable, no open wound at present - tight glycemic control will see if need to consult surgery for I/d (2) Acute kidney injury superimposed on CKD: Code(s): N17.9 - Acute kidney failure, unspecified; N18.9 - Chronic kidney disease, unspecified Status: Acute Assessment and Plan: - unclear if NICOLE superimposed on CKD verses patient's baseline, most recent lab work over a year ago - creatinine 2.7 and GFR 25, previously 2.14 and GFR 32 on 05/16/2022 - add CK, urine sodium, urine protein, urine creatinine, protein/creatinine - UA ordered - bladder scan for postvoid residual - monitor I&Os - will hold on nephrology consultation given this is likely patient's baseline with his history of CKD stage 4 - trend renal function - trend electrolytes, correct as needed (3) Diabetes mellitus: Qualifiers: Diabetes mellitus complication status: with hyperglycemia Diabetes mellitus lead manufacturing technician insulin use: with lead manufacturing technician use Diabetes mellitus type: type 2 Qualified Code(s): E11.65 - Type 2 diabetes mellitus with hyperglycemia; Z79.4 - family readiness support assistant (current) use of insulin Code(s): E11.9 - Type 2 diabetes mellitus without complications Status: Chronic Assessment and Plan: - hypoglycemia protocol - POC blood glucose ACHS - home medication: Jardiance 10 mg daily, Lantus 15 units HS - correct regimen ordered - moderate dose TIDWM, based off BMI - A1C ordered, none on file - supervisor partial denture department consulted for re-education (4) Hypertension: Qualifiers: Hypertension type: unspecified Qualified Code(s): I10 - Essential (primary) hypertension Code(s): I10 - Essential (primary) hypertension Status: Chronic Assessment and Plan: - chronic, currently 119/105 - continue home medications: Carvedilol 25 mg b.i.d. - monitor Plan Diet: Diabetic GI Prophylaxis: Not currently indicated DVT Prophylaxis: SCDs Lines: Peripheral Code Status: Full code Time Spent With Patient Time with patient: Greater than 35 minutes Subjective Date/time seen: 02/21/24 09:32 Interval history: 53 y/o M presents here with complaints of a right abdominal not and pain with PMH of hyperlipidemia, hypertension, obesity, peripheral neuropathy, CKD D stage III, and type 2 diabetes. The patient presents here from home for further evaluation of right lower abdominal pain and sensation of a knot in same region. He reports he initially noted a pimple-like region to his right inguinal/suprapubic region approximately 6-7 days ago. He initially tried to pop region. He was able to express a small amount of white fluid. Same region then began to develop erythema and increased tenderness. He initially sought care with his PCP on 02/17 (Mon). He was given a shot of penicillin and prescribed an oral course of abx (nothing listed in outside med rec), filled script yesterday and has taken 3 doses. Despite antibi otic use, the region has had no improvement in redness, tenderness, or size. He has now also developed pressure and erythema that is tracking towards his scrotal region. No associated testicular pain, testicular swelling, fever, dysuria, discharge, chills, or body aches. Has had a previous skin infection years ago, told it was MRSA. Patient has a history of type 2 diabetes for which he is on Jardiance and Lantus. The patient reports he does not regularly check his blood sugar at home. Reports that once a month he will travel and will not take his diabetes medications for a week. Patient is also supposed to be on Lantus but reports he is unable to afford this medication at this time. He reported to the bedside RN that his insurance showed kick in next week some time and he should be able to fill this. Last dose of Lantus was over a week ago. Patient follows with a senior cyber intelligence analyst, believes her name is Sophia. Has previously been told that he is Stage 4 and one stage away from dialysis. Sees Josh MICHELE for his endocrine care. Initial VS at presentation: 97.8? F, HR 95, RR 18, 181/93, and 100% on RA. ED workup showed: No leukocytosis, hemoglobin 11.0, creatinine 2.7 and GFR 25 ( previously 2.14 and GFR 32 in 04/2022), calcium 8.2, glucose 153, CRP 12.9. Pelvic CT showed cellulitis of the right ankle region with possible sinus tract, no significant drainable abscess. 02/20- pt is seen and examined. pain is controlled. Review of Systems Review of Systems: All systems reviewed & are unremarkable except as noted in HPI and below Exam Narrative: induration and mild erythema to right pubic region not involving the groin. +tenderness. no drainage or open wounds. [id number] Const: General: comfortable and no acute distress Other: , male, nontoxic appearance HENMT: Face/Nose/Sinus: Normal nares present Mouth: Yes moist mucous membranes Eyes: General: appearance normal, both eyes and all related structures Sclera: sclerae normal Pupils: Equal, round and reactive pupils present EOM: EOMs intact bilaterally Resp: Effort & Inspection: normal respiratory effort Auscultation: clear to auscultation bilaterally Cardio: Rate: regular rate Rhythm: regular rhythm Other: S1-S2 present without murmur, rub, ectopy GI: Other: Abdomen soft, nondistended, nontender. Normoactive bowel sounds in all quadrants. Skin: General skin exam: normal color, no rashes or lesions noted and wounds noted Wounds: wounds noted Other: Indurated region to right pubic region without groin involvement or streaking. Linear shape running vertically. Approximately [id number]. No open regions or drainage. Mild erythema.+tenderness. Neuro: General: gait normal Cranial nerves: Yes Equal, round and reactive pupils present Speech: normal speech Motor exam (neuro): 5/5 motor strength present throughout Sensory Exam: normal sensation Other: A&O x4 Extrem: General: normal to inspection Psych: Mental Status: mental status grossly normal Affect: normal affect Other: Fair insight and judgment, pleasant Objective Data Vital Signs Vital Signs: Vital Signs - 24 hr 02/20/24 12:44 02/20/24 14:20 02/20/24 14:00 Temperature 98.0 F Pulse Rate 99 100 Respiratory Rate 16 16 Blood Pressure 119/105 H 172/92 H Pulse Oximetry 99 88 L Oxygen Delivery Room Air 02/20/24 15:26 02/20/24 20:00 02/20/24 22:00 Temperature 97.5 F L Pulse Rate 75 Respiratory Rate 16 Blood Pressure 112/49 L Pulse Oximetry 97 97 Oxygen Delivery Room Air 02/21/24 05:55 Temperature 97.5 F L Pulse Rate 89 Respiratory Rate 18 Blood Pressure 159/70 H Pulse Oximetry 99 Oxygen Delivery Intake/Output Intake/Output: Intake & Output 02/18/24 02/19/24 02/20/24 02/21/24 23:59 23:59 23:59 23:59 Intake Total 2212 Output Total 600 Balance 1612 Meds/Results Medications: Active Medications Generic Name Dose Route Start Last Admin Trade Name Freq PRN Reason Stop Dose Admin Acetaminophen 650 mg 02/20/24 12:34 Acetaminophen 325 Mg Tablet PO Q6H PRN Mild Pain (1-3) or Fever Hydrocodone Bitart/Acetaminophen 1 tab 02/20/24 12:34 02/21/24 06:32 Hydrocodone/Acetaminophen (*Crx) 5-325 Mg Tablet PO 1 tab Q6H PRN Administration Pain Rated 4-6 Carvedilol 25 mg 02/20/24 17:00 02/21/24 09:02 Carvedilol 25 Mg Tablet PO 25 mg BID EDISON Administration Dextrose 12.5 gm 02/20/24 12:34 Dextrose 50% 25 Gm/50 Ml Syringe IV PUSH PRN PRN Hypoglycemia Protocol Empagliflozin 10 mg 02/21/24 09:00 02/21/24 09:02 Empagliflozin 10 Mg Tablet PO 10 mg DAILY EDISON Administration Glucagon 1 mg 02/20/24 12:34 Glucagon For Inj 1 Mg Vial IM PRN PRN Hypoglycemia Protocol Glucose 15 gm 02/20/24 12:34 Glucose Oral Gel 15 Gm Of Glucse In 37.5 Gm Tube PO PRN PRN Hypoglycemia Protocol Dextrose 1,000 mls @ 100 mls/hr 02/20/24 12:34 Dextrose 5% 1,000 Ml IVPB PRN PRN Hypoglycemia Protocol Vancomycin HCl 1,500 mg in 500 mls @ 250 mls/hr 02/22/24 01:00 Vancomycin 1,500 Mg/Ns 500 Ml IVPB Q36H [facility] Insulin Aspart 3 - 6 units 02/20/24 17:00 02/21/24 07:54 Insulin Aspart (*Bkc) 100 Units/Ml SUB-Q Not Given TIDWM [facility] Protocol Insulin Glargine 15 units 02/20/24 21:00 02/20/24 20:30 Insulin Glargine (*Bkc) 100 Units/Ml SUB-Q 15 units HS EIDSON Administration Ondansetron HCl 4 mg 02/20/24 12:34 Ondansetron Inj 4 Mg/2 Ml Vial IV PUSH Q6H PRN Nausea And Vomiting Radiology Results: ITS Impressions Pelvis CT 02/20/24 11:19 IMPRESSION: 1. Cellulitis in the right inguinal region with possible sinus tract. No significant drainable abscess. Labs Labs: Laboratory Results - last 24 hr 02/20/24 02/20/24 02/20/24 10:10 10:11 14:09 WBC 6.3 RBC 3.93 L Hgb 11.0 L Hct 34.0 L MCV 86.5 MCH 28.0 MCHC 32.4 RDW 14.4 Plt Count 223 MPV 9.3 Immature Gran % (Auto) 0.5 Neut % (Auto) 76.7 H Lymph % (Auto) 9.9 L [place] % (Auto) 9.9 H Eos % (Auto) 2.4 Baso % (Auto) 0.6 Lymph # (Auto) 0.63 L [place] # (Auto) 0.6 Eos # (Auto) 0.2 Baso # (Auto) 0.0 Abs Immat Gran (auto) 0.03 Absolute Neuts (auto) 4.9 Absolute Nucleated RBC 0.000 Nucleated RBC % 0.0 Sodium 136 L Potassium 4.2 Chloride 107 Carbon Dioxide 21 L Anion Gap 8 BUN 42 H Creatinine 2.70 H Estim Creat Clear Calc 30 Estimated GFR 25 L Glucose 153 H POC Capillary Glucose Hemoglobin A1c 6.3 H Lactic Acid 0.8 Calcium 8.2 L Total Bilirubin 0.5 AST 12 L ALT 7 Alkaline Phosphatase 96 Total Creatine Kinase 37 L C-Reactive Protein 12.9 H Total Protein 7.0 Albumin 3.8 Urine Color Urine Appearance Urine pH Ur Specific [place] Urine Protein Urine Glucose (UA) Urine Ketones Ur Blood (Man) Urine Nitrate Urine Bilirubin Urine Urobilinogen Leukocyte Esterase Rfl Urine RBC Urine WBC Ur Squamous Epith Cells Urine Bacteria Urine Casts U Random Total Protein Ur Random Sodium Urine Creatinine Protein/Creat Ratio 2 02/20/24 02/20/24 02/20/24 16:58 18:23 18:23 WBC RBC Hgb Hct MCV MCH MCHC RDW Plt Count MPV Immature Gran % (Auto) Neut % (Auto) Lymph % (Auto) [place] % (Auto) Eos % (Auto) Baso % (Auto) Lymph # (Auto) [place] # (Auto) Eos # (Auto) Baso # (Auto) Abs Immat Gran (auto) Absolute Neuts (auto) Absolute Nucleated RBC Nucleated RBC % Sodium Potassium Chloride Carbon Dioxide Anion Gap BUN Creatinine Estim Creat Clear Calc Estimated GFR Glucose POC Capillary Glucose 114 H Hemoglobin A1c Lactic Acid Calcium Total Bilirubin AST ALT Alkaline Phosphatase Total Creatine Kinase C-Reactive Protein Total Protein Albumin Urine Color Yellow Urine Appearance Clear Urine pH 5.5 Ur Specific [place] 1.016 Urine Protein 3+ H Urine Glucose (UA) Trace H Urine Ketones Negative Ur Blood (Man) Negative Urine Nitrate Negative Urine Bilirubin Negative Urine Urobilinogen 0.2 Leukocyte Esterase Rfl Negative Urine RBC 0-2 Urine WBC 0-5 Ur Squamous Epith Cells None seen Urine Bacteria None seen Urine Casts 0-2 U Random Total Protein Cancelled 340 Ur Random Sodium 124 Urine Creatinine Cancelled Protein/Creat Ratio 2 02/20/24 02/20/24 02/21/24 18:23 20:22 06:22 WBC 4.7 RBC 3.57 L Hgb 9.9 L Hct 31.5 L MCV 88.2 MCH 27.7 MCHC 31.4 L RDW 14.5 Plt Count 201 MPV 9.1 Immature Gran % (Auto) 0.4 Neut % (Auto) 68.4 Lymph % (Auto) 15.3 L [place]son % (Auto) 11.4 H Eos % (Auto) 3.2 Baso % (Auto) 1.3 H Lymph # (Auto) 0.71 L [place]son # (Auto) 0.5 Eos # (Auto) 0.2 Baso # (Auto) 0.1 Abs Immat Gran (auto) 0.02 Absolute Neuts (auto) 3.2 Absolute Nucleated RBC 0.000 Nucleated RBC % 0.0 Sodium 137 Potassium 4.7 Chloride 108 H Carbon Dioxide 23 Anion Gap 6 BUN 43 H Creatinine 3.20 H Estim Creat Clear Calc 29 Estimated GFR 20 L Glucose 104 POC Capillary Glucose 200 H Hemoglobin A1c Lactic Acid Calcium 8.1 L Total Bilirubin AST ALT Alkaline Phosphatase Total Creatine Kinase C-Reactive Protein 6.6 H Total Protein Albumin Urine Color Urine Appearance Urine pH Ur Specific [place] Urine Protein Urine Glucose (UA) Urine Ketones Ur Blood (Man) Urine Nitrate Urine Bilirubin Urine Urobilinogen Leukocyte Esterase Rfl Urine RBC Urine WBC Ur Squamous Epith Cells Urine Bacteria Urine Casts U Random Total Protein Ur Random Sodium Urine Creatinine 77.6 Protein/Creat Ratio 2 Cancelled 02/21/24 07:41 WBC RBC Hgb Hct MCV MCH MCHC RDW Plt Count MPV Immature Gran % (Auto) Neut % (Auto) Lymph % (Auto) Anson % (Auto) Eos % (Auto) Baso % (Auto) Lymph # (Auto) [place] # (Auto) Eos # (Auto) Baso # (Auto) Abs Immat Gran (auto) Absolute Neuts (auto) Absolute Nucleated RBC Nucleated RBC % Sodium Potassium Chloride Carbon Dioxide Anion Gap BUN Creatinine Estim Creat Clear Calc Estimated GFR Glucose POC Capillary Glucose 97 Hemoglobin A1c Lactic Acid Calcium Total Bilirubin AST ALT Alkaline Phosphatase Total Creatine Kinase C-Reactive Protein Total Protein Albumin Urine Color Urine Appearance Urine pH Ur Specific [place] Urine Protein Urine Glucose (UA) Urine Ketones Ur Blood (Man) Urine Nitrate Urine Bilirubin Urine Urobilinogen Leukocyte Esterase Rfl Urine RBC Urine WBC Ur Squamous Epith Cells Urine Bacteria Urine Casts U Random Total Protein Ur Random Sodium Urine Creatinine Protein/Creat Ratio 2 Quality VTE Prophylaxis VTE prophylaxis: mechanical ordered
[2024-02-21 11:41] LABS: Glucose Point of Care 220 mg/dl (65-105)
[2024-02-21 14:00] VITALS: BP 141/59; PULSE 74; RESP 14; TEMP 36.5; O2SAT 98
--- NOTE | 2024-02-21 16:38 | PM.CNGS ---
Assessment and Plan Assessment and plan (1) Cellulitis of right groin: Code(s): L03.314 - Cellulitis of groin Status: Acute Assessment and Plan: Cellulitis in the right inguinal area. CT scan with no abscess. No obvious fluctuance on exam, all induration at this time. Continue IV antibiotics. Will continue to monitor. (2) Diabetes mellitus: Qualifiers: Diabetes mellitus complication status: with hyperglycemia Diabetes mellitus penitentiary insulin use: with penitentiary use Diabetes mellitus type: type 2 Qualified Code(s): E11.65 - Type 2 diabetes mellitus with hyperglycemia; Z79.4 - nursing home (current) use of insulin Code(s): E11.9 - Type 2 diabetes mellitus without complications Status: Chronic (3) Acute kidney injury superimposed on CKD: Code(s): N17.9 - Acute kidney failure, unspecified; N18.9 - Chronic kidney disease, unspecified Status: Acute (4) Hypertension: Qualifiers: Hypertension type: unspecified Qualified Code(s): I10 - Essential (primary) hypertension Code(s): I10 - Essential (primary) hypertension Status: Chronic Plan I have discussed the patient's case and plan of care with Dr. Hernandez. History of Present Illness Consult details Consult date: 02/21/24 Reason for consult: other (Possible groin abscess) Requesting physician: Cira Sánchez APRN Narrative: This is a 53-year-old man with PMH of CKD, diabetes, who presented to the ED with complaints of swelling and pain in his right inguinal area. He initially noticed some pain in this area about a week ago. He continued to have pain in this location and felt like he could see a small pimple in this area. He picked at the pimple and expressed a small amount of pus about 5 days ago. Otherwise, this area has not been draining. He saw his PCP 3 days ago and was given oral antibiotics but had no improvement. Discussing with the staff, the patient is apparently non compliant and will stop taking his diabetic medications for a week at a time. He also stopped taking Lantus as he could not afford it. Workup in the ED showed a normal white blood cell count, and acute on chronic renal failure. Pelvis CT showed cellulitis in the right inguinal region with possible sinus tract, no drainable abscess. Patient was admitted and started on IV antibiotics. He is now seen on the medical floor. Denies any previous abscess or skin infection. No previous surgeries or hernia repairs in his groin. Review of Systems Review of Systems: All systems reviewed & are unremarkable except as noted in HPI and below PMFSH Past Medical History Medical History Hyperlipidemia Hypertension Morbid obesity Peripheral neuropathy Stage 3 chronic kidney disease Type 2 diabetes mellitus Surgical History Surgical History History of ventral hernia repair Hx of cholecystectomy Social History Social History Smoking packs per day: 0.25 Smoking cigarettes per day: 5.0 Smoking status: Never smoker Tobacco type: cigarettes Additional smoking assessment comments: patient states that he quit smoking for 17 years. Alcohol intake: never Substance use: never Do You Feel Safe in your Home?: Yes Lack of Transportation: No Lack of Food: Never True Current Housing: I Have Housing Concerned About Future Housing: No Difficulty Paying Gas/Electric Bills: No Difficulty Paying for Meds: YES Currently Unemployed: No Education: Grade School Difficulty w/ Childcare or Family Care: No Spiritual care concerns: No Meds Home Medications and Allergies Home Medications Medication Instructions Recorded Confirmed Type carvedilol 25 mg tablet 25 mg PO BID 05/16/22 02/20/24 History furosemide 20 mg tablet 20 mg PO BID 05/16/22 05/16/22 History lisinopril 40 mg tablet 40 mg PO DAILY 05/16/22 05/16/22 History nifedipine 90 mg tablet,extended 90 mg PO DAILY 05/16/22 05/16/22 History release spironolactone 25 mg tablet 25 mg PO DAILY 05/16/22 05/16/22 History empagliflozin 10 mg tablet 10 mg PO DAILY 02/20/24 02/20/24 History (Jardiance) insulin glargine 100 unit/mL 15 unit subcut HS 02/20/24 02/20/24 History subcutaneous solution (Lantus U-100 Insulin) Allergies Allergy/AdvReac Type Severity Reaction Status Date / Time No Known Allergies Allergy Verified 02/20/24 13:54 Vital Signs Vital Signs - 24 hr 02/20/24 20:00 02/20/24 22:00 02/21/24 05:55 Temperature 97.5 F L 97.5 F L Pulse Rate 75 89 Respiratory Rate 16 18 Blood Pressure 112/49 L 159/70 H Pulse Oximetry 97 99 Oxygen Delivery Room Air 02/21/24 08:00 02/21/24 14:00 Temperature 97.7 F Pulse Rate 74 Respiratory Rate 14 Blood Pressure 141/59 H Pulse Oximetry 98 Oxygen Delivery Room Air Exam Const: General: comfortable and no acute distress Nutritional Appearance: average body habitus Orientation/consciousness: patient oriented x3 HENMT: Head: normocephalic and atraumatic Ears: hearing grossly normal bilaterally Mouth: Yes moist mucous membranes Eyes: General: appearance normal, both eyes and all related structures Pupils: Equal, round and reactive pupils present Neck: Neck: normal visual inspection and full ROM Resp: Effort & Inspection: no respiratory distress Auscultation: clear to auscultation bilaterally Cardio: Rate: regular rate Rhythm: regular rhythm Heart sounds: S1 normal heart sound present and S2 normal heart sound present Peripheral pulses: Peripheral pulses 2+ throughout GI: Inspection: non-distended GI Palp: Yes Soft to palpation, No Tenderness to palpation present (GI), No Guarding due to palpation present (GI), Yes No hepatosplenomegaly present and No Rebound tenderness present Percussion: Yes normal to percussion Auscultation: normal bowel sounds Rectal Exam: deferred Abdomen image: 1. about a 6 cm area of induration in the right inguinal area. erythema clearly improved from demarcated line from yesterday. No open wound or drainage. : Male General Exam: Yes normal external exam Penis: Yes normal penis Scrotum: scrotum normal Testes: Testes normal Skin: General skin exam: normal color Neuro: General: moves all extremities and no focal motor deficits Speech: normal speech Motor exam (neuro): 5/5 motor strength present throughout Extrem: General: normal to inspection and no edema Psych: Mental Status: mental status grossly normal Attitude: cooperative Insight: Good insight present (Psych) Judgement: Good judgement present (Psych) Results Labs 02/21/24 06:22 02/21/24 06:22 Labs: Abnormal lab results 02/20/24 02/20/24 02/20/24 Range/Units 10:10 16:58 18:23 RBC (4.6-6.20) M/mm3 Hgb (14.0-18.0) g/dL Hct (42.0-52.0) % MCHC (32-36) g/dl Lymph % (Auto) (18.3-44.2) % [place] % (Auto) (2.6-8.5) % Baso % (Auto) (0.2-1.2) % Lymph # (Auto) (0.9-3.2) K/mm3 Chloride (98-107) mmol/L BUN (9-20) mg/dL Creatinine (0.7-1.3) mg/dL Estimated GFR (59 - ) POC Capillary Glucose 114 H (65-105) mg/dl Hemoglobin A1c 6.3 H (<5.7) % Calcium (8.4-10.2) mg/dL C-Reactive Protein (<1.0) mg/dL Urine Protein 3+ H (Negative) mg/dL Urine Glucose (UA) Trace H (Negative) mg/dL 02/20/24 02/21/24 02/21/24 Range/Units 20:22 06:22 11:35 RBC 3.57 L (4.6-6.20) M/mm3 Hgb 9.9 L (14.0-18.0) g/dL Hct 31.5 L (42.0-52.0) % MCHC 31.4 L (32-36) g/dl Lymph % (Auto) 15.3 L (18.3-44.2) % [place] % (Auto) 11.4 H (2.6-8.5) % Baso % (Auto) 1.3 H (0.2-1.2) % Lymph # (Auto) 0.71 L (0.9-3.2) K/mm3 Chloride 108 H (98-107) mmol/L BUN 43 H (9-20) mg/dL Creatinine 3.20 H (0.7-1.3) mg/dL Estimated GFR 20 L (59 - ) POC Capillary Glucose 200 H 220 H (65-105) mg/dl Hemoglobin A1c (<5.7) % Calcium 8.1 L (8.4-10.2) mg/dL C-Reactive Protein 6.6 H (<1.0) mg/dL Urine Protein (Negative) mg/dL Urine Glucose (UA) (Negative) mg/dL Diabetes panel 02/20/24 02/21/24 Range/Units 10:10 06:22 Sodium 137 (137-145) mmol/L Potassium 4.7 (3.4-5.0) mmol/L Chloride 108 H (98-107) mmol/L Carbon Dioxide 23 (22-30) mmol/L BUN 43 H (9-20) mg/dL Creatinine 3.20 H (0.7-1.3) mg/dL Glucose 104 (65-110) mg/dL Hemoglobin A1c 6.3 H (<5.7) % Calcium 8.1 L (8.4-10.2) mg/dL Calcium panel 02/21/24 Range/Units 06:22 Calcium 8.1 L (8.4-10.2) mg/dL Pituitary panel 02/21/24 Range/Units 06:22 Sodium 137 (137-145) mmol/L Potassium 4.7 (3.4-5.0) mmol/L Chloride 108 H (98-107) mmol/L Carbon Dioxide 23 (22-30) mmol/L BUN 43 H (9-20) mg/dL Creatinine 3.20 H (0.7-1.3) mg/dL Glucose 104 (65-110) mg/dL Calcium 8.1 L (8.4-10.2) mg/dL Adrenal panel 02/21/24 Range/Units 06:22 Sodium 137 (137-145) mmol/L Potassium 4.7 (3.4-5.0) mmol/L Chloride 108 H (98-107) mmol/L Carbon Dioxide 23 (22-30) mmol/L BUN 43 H (9-20) mg/dL Creatinine 3.20 H (0.7-1.3) mg/dL Glucose 104 (65-110) mg/dL Calcium 8.1 L (8.4-10.2) mg/dL All other labs normal. Imaging Additional studies: ITS Impressions Pelvis CT 02/20/24 11:19 IMPRESSION: 1. Cellulitis in the right inguinal region with possible sinus tract. No significant drainable abscess.
[2024-02-21 17:02] LABS: Glucose Point of Care 122 mg/dl (65-105)
[2024-02-21] MEDS: INSULIN GLARGINE (*BKC) 100 UNITS/ML 15 UNITS SUB-Q (20:41)
[2024-02-21 20:48] LABS: Glucose Point of Care 192 mg/dl (65-105)
[2024-02-21 22:00] VITALS: BP 133/70; PULSE 62; RESP 18; TEMP 36.4; O2SAT 99
[2024-02-22] MEDS: HYDROcodone/acetaminophen (*CRX) 5-325 MG TABLET 1 TAB PO ×3 (00:48→16:47)
[2024-02-22] MEDS: VANCOMYCIN 1,500 MG/NS 500 ML 1,500 MG/500 ML BAG 250 MG IVPB (00:54)
[2024-02-22 05:52] VITALS: BP 136/70; PULSE 73; RESP 16; TEMP 35.9; O2SAT 98
[2024-02-22 06:30] LABS: Estimated CRCL calculation 28 ml/min; Estimated Glomerular Filt Rate 20
[2024-02-22 07:33] LABS: Glucose Point of Care 106 mg/dl (65-105)
[2024-02-22] MEDS: EMPAGLIFLOZIN 10 MG TABLET PO (08:31)
[2024-02-22] MEDS: carvediloL 25 MG TABLET PO ×2 (08:31→16:47)
--- NOTE | 2024-02-22 09:21 | PM.IMPN ---
Progress Note: A&P Assessment and Plan (1) Cellulitis of right groin: Code(s): L03.314 - Cellulitis of groin Status: Acute Assessment and Plan: - did not meet SIRS criteria, HR only. lactic 0.8. blood cultures were obtained, follow. - CT pelvis: cellulitis in the right inguinal region with possible sinus tract. No significant drainable abscess. - WBC 6.3, CRP 12.9. trend. - started on Vancomycin on 02/19-continue - wound culture if obtainable, no open wound at present - tight glycemic control will see if need to consult surgery for I/d surgery consulted- for I/D- possibly today, 02/21 (2) Acute kidney injury superimposed on CKD: Code(s): N17.9 - Acute kidney failure, unspecified; N18.9 - Chronic kidney disease, unspecified Status: Acute Assessment and Plan: - unclear if NICOLE superimposed on CKD verses patient's baseline, most recent lab work over a year ago - creatinine 2.7 and GFR 25, previously 2.14 and GFR 32 on 05/16/2022 - add CK, urine sodium, urine protein, urine creatinine, protein/creatinine - UA ordered - bladder scan for postvoid residual - monitor I&Os - will hold on nephrology consultation given this is likely patient's baseline with his history of CKD stage 4 - trend renal function - trend electrolytes, correct as needed (3) Diabetes mellitus: Qualifiers: Diabetes mellitus complication status: with hyperglycemia Diabetes mellitus termite control technician insulin use: with care home use Diabetes mellitus type: type 2 Qualified Code(s): E11.65 - Type 2 diabetes mellitus with hyperglycemia; Z79.4 - laborer marine terminal (current) use of insulin Code(s): E11.9 - Type 2 diabetes mellitus without complications Status: Chronic Assessment and Plan: - hypoglycemia protocol - POC blood glucose ACHS - home medication: Jardiance 10 mg daily, Lantus 15 units HS - correct regimen ordered - moderate dose TIDWM, based off BMI - A1C ordered, none on file - educator senior clinical consulted for re-education (4) Hypertension: Qualifiers: Hypertension type: unspecified Qualified Code(s): I10 - Essential (primary) hypertension Code(s): I10 - Essential (primary) hypertension Status: Chronic Assessment and Plan: - chronic, currently 119/105 - continue home medications: Carvedilol 25 mg b.i.d. - monitor Plan Diet: Diabetic GI Prophylaxis: Not currently indicated DVT Prophylaxis: SCDs Lines: Peripheral Code Status: Full code Time Spent With Patient Time with patient: Greater than 35 minutes Subjective Date/time seen: 02/22/24 09:21 Interval history: 53 y/o M presents here with complaints of a right abdominal not and pain with PMH of hyperlipidemia, hypertension, obesity, peripheral neuropathy, CKD D stage III, and type 2 diabetes. The patient presents here from home for further evaluation of right lower abdominal pain and sensation of a knot in same region. He reports he initially noted a pimple-like region to his right inguinal/suprapubic region approximately 6-7 days ago. He initially tried to pop region. He was able to express a small amount of white fluid. Same region then began to develop erythema and increased tenderness. He initially sought care with his PCP on 02/17 (Mon). He was given a shot of penicillin and prescribed an oral course of abx (nothing listed in outside med rec), filled script yesterday and has taken 3 doses. Despite antibiotic use, the region has had no improvement in redness, tenderness, or size. He has now also developed pressure and erythema that is tracking towards his scrotal region. No associated testicular pain, testicular swelling, fever, dysuria, discharge, chills, or body aches. Has had a previous skin infection years ago, told it was MRSA. Patient has a history of type 2 diabetes for which he is on Jardiance and Lantus. The patient reports he does not regularly check his blood sugar at home. Reports that once a month he will travel and will not take his diabetes medications for a week. Patient is also supposed to be on Lantus but reports he is unable to afford this medication at this time. He reported to the bedside RN that his insurance showed kick in next week some time and he should be able to fill this. Last dose of Lantus was over a week ago. Patient follows with a associate professor of chemistry, believes her name is Sophia. Has previously been told that he is Stage 4 and one stage away from dialysis. Sees Josh MICHELE for his endocrine care. Initial VS at presentation: 97.8? F, HR 95, RR 18, 181/93, and 100% on RA. ED workup showed: No leukocytosis, hemoglobin 11.0, creatinine 2.7 and GFR 25 (previously 2.14 and GFR 32 in 04/2022), calcium 8.2, glucose 153, CRP 12.9. Pelvic CT showed cellulitis of the right ankle region with possible sinus tract, no significant drainable abscess. 02/20- pt is seen and examined. pain is controlled. 02/21- surgery saw him- will continue with IV antibiotics. Review of Systems Review of Systems: All systems reviewed & are unremarkable except as noted in HPI and below Exam Narrative: induration and mild erythema to right pubic region not involving the groin. +tenderness. no drainage or open wounds. [id number] Const: General: comfortable and no acute distress Other: , male, nontoxic appearance HENMT: Face/Nose/Sinus: Normal nares present Mouth: Yes moist mucous membranes Eyes: General: appearance normal, both eyes and all related structures Sclera: sclerae normal Pupils: Equal, round and reactive pupils present EOM: EOMs intact bilaterally Resp: Effort & Inspection: normal respiratory effort Auscultation: clear to auscultation bilaterally Cardio: Rate: regular rate Rhythm: regular rhythm Other: S1-S2 present without murmur, rub, ectopy GI: Other: Abdomen soft, nondistended, nontender. Normoactive bowel sounds in all quadrants. Skin: General skin exam: normal color, no rashes or lesions noted and wounds noted Wounds: wounds noted Other: Indurated region to right pubic region without groin involvement or streaking. Linear shape running vertically. Approximately [id number]. No open regions or drainage. Mild erythema.+tenderness. Neuro: General: gait normal Cranial nerves: Yes Equal, round and reactive pupils present Speech: normal speech Motor exam (neuro): 5/5 motor strength present throughout Sensory Exam: normal sensation Other: A&O x4 Extrem: General: normal to inspection Psych: Mental Status: mental status grossly normal Affect: normal affect Other: Fair insight and judgment, pleasant Objective Data Vital Signs Vital Signs: Vital Signs - 24 hr 02/21/24 14:00 02/21/24 22:00 02/22/24 05:52 Temperature 97.7 F 97.6 F 96.6 F L Pulse Rate 74 62 73 Respiratory Rate 14 18 16 Blood Pressure 141/59 H 133/70 136/70 Pulse Oximetry 98 99 98 Intake/Output Intake/Output: Intake & Output 02/19/24 02/20/24 02/21/24 02/22/24 23:59 23:59 23:59 23:59 Intake Total 2212 1440 450 Output Total 600 Balance 1612 1440 450 Meds/Results Medications: Active Medications Generic Name Dose Route Start Last Admin Trade Name Freq PRN Reason Stop Dose Admin Acetaminophen 650 mg 02/20/24 12:34 Acetaminophen 325 Mg Tablet PO Q6H PRN Mild Pain (1-3) or Fever Hydrocodone Bitart/Acetaminophen 1 tab 02/20/24 12:34 02/22/24 08:31 Hydrocodone/Acetaminophen (*Crx) 5-325 Mg Tablet PO 1 tab Q6H PRN Administration Pain Rated 4-6 Carvedilol 25 mg 02/20/24 17:00 02/22/24 08:31 Carvedilol 25 Mg Tablet PO 25 mg BID EDISON Administration Dextrose 12.5 gm 02/20/24 12:34 Dextrose 50% 25 Gm/50 Ml Syringe IV PUSH PRN PRN Hypoglycemia Protocol Empagliflozin 10 mg 02/21/24 09:00 02/22/24 08:31 Empagliflozin 10 Mg Tablet PO 10 mg DAILY EDISON Administration Glucagon 1 mg 02/20/24 12:34 Glucagon For Inj 1 Mg Vial IM PRN PRN Hypoglycemia Protocol Glucose 15 gm 02/20/24 12:34 Glucose Oral Gel 15 Gm Of Glucse In 37.5 Gm Tube PO PRN PRN Hypoglycemia Protocol Dextrose 1,000 mls @ 100 mls/hr 02/20/24 12:34 Dextrose 5% 1,000 Ml IVPB PRN PRN Hypoglycemia Protocol Vancomycin HCl 1,500 mg in 500 mls @ 250 mls/hr 02/22/24 01:00 02/22/24 00:54 Vancomycin 1,500 Mg/Ns 500 Ml IVPB 250 mls/hr Q36H EDISON Administration Insulin Aspart 3 - 6 units 02/20/24 17:00 02/22/24 07:54 Insulin Aspart (*Bkc) 100 Units/Ml SUB-Q Not Given TIDWM EDISON Protocol Insulin Glargine 15 units 02/20/24 21:00 02/21/24 20:41 Insulin Glargine (*Bkc) 100 Units/Ml SUB-Q 15 units HS EDISON Administration Ondansetron HCl 4 mg 02/20/24 12:34 Ondansetron Inj 4 Mg/2 Ml Vial IV PUSH Q6H PRN Nausea And Vomiting Radiology Results: ITS Impressions Pelvis CT 02/20/24 11:19 IMPRESSION: 1. Cellulitis in the right inguinal region with possible sinus tract. No significant drainable abscess. Labs Labs: Laboratory Results - last 24 hr 02/21/24 02/21/24 02/21/24 11:35 16:50 20:36 Creatinine Estim Creat Clear Calc Estimated GFR POC Capillary Glucose 220 H 122 H 192 H 02/22/24 02/22/24 05:41 07:24 Creatinine 3.30 H Estim Creat Clear Calc 28 Estimated GFR 20 L POC Capillary Glucose 106 H Quality VTE Prophylaxis VTE prophylaxis: mechanical ordered
[2024-02-22] MEDS: HYDROmorphone HCL INJ (*CRX) 1 MG/ML SYR IV PUSH (09:47)
[2024-02-22] MEDS: LORazepam INJ (*CRX) 2 MG/ML VIAL 1 MG IV PUSH (09:49)
[2024-02-22] MEDS: LIDO 1%/EPINEPHRINE 1:100,000 20 ML VIAL 10 ML INFILTRATE (10:11)
--- NOTE | 2024-02-22 10:14 | W.PM.PROC2 ---
Procedure Note - Detailed Date of Procedure 02/22/24 Pre-op Diagnosis Right groin abscess Post-op Diagnosis Same Procedure Performed complex incision and drainage of right groin abscess measuring 5 x 4 cm Surgeon Adriana Hernandez MD Anesthesia Local Indications 53-year-old male presenting with worsening right groin abscess Findings 5 x 4 cm right groin abscess with large amount of purulent drainage Description of Procedure The patient was placed in the supine position. The area was then prepped and draped in the normal sterile fashion. A time-out was then done to verify the patient's identity, as well as the procedure being performed. I began by localizing the area in and around this abscess in the right groin. I then used a 15 blade scalpel to make an incision over the most fluctuant area of this abscess. Immediately a large amount pus was noted. I then used the hemostat to bluntly dissect around this cavity and further purulent drainage was expressed. Once the cavity was completely opened and explored, it measured 5 x 4 cm. I then packed the area with half-inch iodoform packing to keep the area open and draining. Sterile dressing was placed. The patient tolerated the procedure well. Implants Half-inch iodoform packing Estimated Blood Loss 5 Drains No Packing Yes Pathology None sent Complications No immediate complications Condition Stable Disposition No change [facility] Billing Surgery - Charge Forward: Surgery Billing
[2024-02-22 11:29] LABS: Glucose Point of Care 124 mg/dl (65-105)
[2024-02-22 14:00] VITALS: BP 140/70; PULSE 70; RESP 18; TEMP 36.3; O2SAT 99
[2024-02-22 16:39] LABS: Glucose Point of Care 184 mg/dl (65-105)
[2024-02-22 21:01] LABS: Glucose Point of Care 178 mg/dl (65-105)
[2024-02-22] MEDS: INSULIN GLARGINE (*BKC) 100 UNITS/ML 15 UNITS SUB-Q (21:05)
[2024-02-22 21:42] VITALS: BP 149/70; PULSE 51; RESP 18; TEMP 36.5; O2SAT 100
[2024-02-23] MEDS: HYDROcodone/acetaminophen (*CRX) 5-325 MG TABLET 1 TAB PO ×2 (02:41→08:55)
[2024-02-23 06:00] VITALS: BP 150/72; PULSE 70; RESP 18; TEMP 36.6; O2SAT 99
[2024-02-23 07:25] LABS: Estimated CRCL calculation 29 ml/min; Estimated Glomerular Filt Rate 20
[2024-02-23 07:30] LABS: Glucose Point of Care 98 mg/dl (65-105)
[2024-02-23] MEDS: EMPAGLIFLOZIN 10 MG TABLET PO (08:52)
[2024-02-23] MEDS: carvediloL 25 MG TABLET PO (08:52)
--- NOTE | 2024-02-23 10:05 | PM.PNGS ---
Progress Note: A&P Assessment and Plan (1) Cellulitis of right groin: Code(s): L03.314 - Cellulitis of groin Status: Acute Assessment and Plan: s/p I and D, local wound care, home c po abx, ok to dc from surgical standpoint Subjective Subjective Date/Time Seen: 02/23/24 10:05 Interval history: feels much better, decreased pressure/pain in R groin Review of Systems Review of Systems: All systems reviewed & are unremarkable except as noted in HPI and below Exam Const: General: cooperative, comfortable and no acute distress Skin: Other: R groin - unpacked, good drainage, mod residual induration Objective Data Vital Signs Vital Signs: Vital Signs - 24 hr 02/22/24 14:00 02/22/24 21:42 02/23/24 06:00 Temperature 36.3 C L 36.5 C 36.6 C Pulse Rate 70 51 L 70 Respiratory Rate 18 18 18 Blood Pressure 140/70 149/70 H 150/72 H Pulse Oximetry 99 100 99 Intake/Output Intake/Output: Intake & Output 02/20/24 02/21/24 02/22/24 02/23/24 23:59 23:59 23:59 23:59 Intake Total 2212 1440 1210 474 Output Total 600 Balance 1612 1440 1210 474 Meds/Results Medications: Active Medications Generic Name Dose Route Start Last Admin Trade Name Freq PRN Reason Stop Dose Admin Acetaminophen 650 mg 02/20/24 12:34 Acetaminophen 325 Mg Tablet PO Q6H PRN Mild Pain (1-3) or Fever Hydrocodone Bitart/Acetaminophen 1 tab 02/20/24 12:34 02/23/24 08:55 Hydrocodone/Acetaminophen (*Crx) 5-325 Mg Tablet PO 1 tab Q6H PRN Administration Pain Rated 4-6 Carvedilol 25 mg 02/20/24 17:00 02/23/24 08:52 Carvedilol 25 Mg Tablet PO 25 mg BID EDISON Administration Dextrose 12.5 gm 02/20/24 12:34 Dextrose 50% 25 Gm/50 Ml Syringe IV PUSH PRN PRN Hypoglycemia Protocol Empagliflozin 10 mg 02/21/24 09:00 02/23/24 08:52 Empagliflozin 10 Mg Tablet PO 10 mg DAILY EDISON Administration Glucagon 1 mg 02/20/24 12:34 Glucagon For Inj 1 Mg Vial IM PRN PRN Hypoglycemia Protocol Glucose 15 gm 02/20/24 12:34 Glucose Oral Gel 15 Gm Of Glucse In 37.5 Gm Tube PO PRN PRN Hypoglycemia Protocol Dextrose 1,000 mls @ 100 mls/hr 02/20/24 12:34 Dextrose 5% 1,000 Ml IVPB PRN PRN Hypoglycemia Protocol Vancomycin HCl 1,500 mg in 500 mls @ 250 mls/hr 02/22/24 01:00 02/22/24 00:54 Vancomycin 1,500 Mg/Ns 500 Ml IVPB 250 mls/hr Q36H EDISON Administration Insulin Aspart 3 - 6 units 02/20/24 17:00 02/23/24 08:52 Insulin Aspart (*Bkc) 100 Units/Ml SUB-Q Not Given TIDWM EDISON Protocol Insulin Glargine 15 units 02/20/24 21:00 02/22/24 21:05 Insulin Glargine (*Bkc) 100 Units/Ml SUB-Q 15 units HS EDISON Administration Ondansetron HCl 4 mg 02/20/24 12:34 Ondansetron Inj 4 Mg/2 Ml Vial IV PUSH Q6H PRN Nausea And Vomiting Radiology Results: ITS Impressions Pelvis CT 02/20/24 11:19 IMPRESSION: 1. Cellulitis in the right inguinal region with possible sinus tract. No significant drainable abscess. Labs Labs: Laboratory Results - last 24 hr 02/22/24 02/22/24 02/22/24 11:25 16:33 20:48 Creatinine Estim Creat Clear Calc Estimated GFR POC Capillary Glucose 124 H 184 H 178 H 02/23/24 02/23/24 07:06 07:23 Creatinine 3.20 H Estim Creat Clear Calc 29 Estimated GFR 20 L POC Capillary Glucose 98
--- NOTE | 2024-02-23 10:31 | P.DS_ITS ---
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 nursing use Diabetes mellitus type: type 2 Qualified Code(s): E11.65 - Type 2 diabetes mellitus with hyperglycemia; Z79.4 - ad terminal makeup operator (current) use of insulin Code(s): E11.9 - Type 2 diabetes mellitus without complications Status: Chronic (4) Hypertension: Qualifiers: Hypertension type: unspecified Qualified Code(s): I10 - Essential (primary) hypertension Code(s): I10 - Essential (primary) hypertension Status: Chronic DS: Summary Hospital Course Hospital Course: 53 y/o M presents here with complaints of a right abdominal not and pain with PMH of hyperlipidemia, hypertension, obesity, peripheral neuropathy, CKD D stage III, and type 2 diabetes. The patient presents here from home for further evaluation of right lower abdominal pain and sensation of a knot in same region. He reports he initially noted a pimple-like region to his right inguinal/suprapubic region approximately 6-7 days ago. He initially tried to pop region. He was able to express a small amount of white fluid. Same region then began to develop erythema and increased tenderness. He initially sought care with his PCP on 02/17 (Mon). He was given a shot of penicillin and prescribed an oral course of abx (nothing listed in outside med rec), filled script yesterday and has taken 3 doses. Despite antibiotic use, the region has had no improvement in redness, tenderness, or size. He has now also developed pressure and erythema that is tracking towards his scrotal region. No associated testicular pain, testicular swelling, fever, dysuria, discharge, chills, or body aches. Has had a previous skin infection years ago, told it was MRSA. Patient has a history of type 2 diabetes for which he is on Jardiance and Lantus. The patient reports he does not regularly check his blood sugar at home. Reports that once a month he will travel and will not take his diabetes medications for a week. Patient is also supposed to be on Lantus but reports he is unable to afford this medication at this time. He reported to the bedside RN that his insurance showed kick in next week some time and he should be able to fill this. Last dose of Lantus was over a week ago. Patient follows with a monomer purification operator, believes her name is Sophia. Has previously been told that he is Stage 4 and one stage away from dialysis. Sees Josh MICHELE for his endocrine care. Initial VS at presentation: 97.8? F, HR 95, RR 18, 181/93, and 100% on RA. ED workup showed: No leukocytosis, hemoglobin 11.0, creatinine 2.7 and GFR 25 (previously 2.14 and GFR 32 in 04/2022), calcium 8.2, glucose 153, CRP 12.9. Pelvic CT showed cellulitis of the right ankle region with possible sinus tract, no significant drainable abscess. I/D was done- ok to be discharged from surgical stand point. Pt was on IV antibiotics- vancomycin and transitioned to PO doxy. Cr/BUN still elevated- will need a close f/u with PCP for recheck. discusse diwth pt- aware. Education completed on diabetic regimen- avoid skipping doses and monitor BS daily- keep log. Status at Discharge Functional status at discharge: independent ambulation Overall status at discharge: patient is progressing back to baseline Time Spent with Patient Time attestation: Total time spent providing and/or coordinating discharge services: Exam Narrative: induration and mild erythema to right pubic region not involving the groin. +tenderness. no drainage or open wounds. [id number] Const: General: comfortable and no acute distress Other: , male, nontoxic appearance HENMT: Face/Nose/Sinus: Normal nares present Mouth: Yes moist mucous membranes Eyes: General: appearance normal, both eyes and all related structures Sclera: sclerae normal Pupils: Equal, round and reactive pupils present EOM: EOMs intact bilaterally Resp: Effort & Inspection: normal respiratory effort Auscultation: clear to auscultation bilaterally Cardio: Rate: regular rate Rhythm: regular rhythm Other: S1-S2 present without murmur, rub, ectopy GI: Other: Abdomen soft, nondistended, nontender. Normoactive bowel sounds in all quadrants. Skin: General skin exam: normal color, no rashes or lesions noted and wounds noted Wounds: wounds noted Other: Indurated region to right pubic region without groin involvement or streaking. Linear shape running vertically. Approximately [id number]. No open regions or drainage. Mild erythema.+tenderness. Neuro: General: gait normal Cranial nerves: Yes Equal, round and reactive pupils present Speech: normal speech Motor exam (neuro): 5/5 motor strength present throughout Sensory Exam: normal sensation Other: A&O x4 Extrem: General: normal to inspection Psych: Mental Status: mental status grossly normal Affect: normal affect Other: Fair insight and judgment, pleasant DS: Data Data Completed and Pending Labs on day of discharge: Labs from last 24 hours 02/23/24 02/23/24 02/22/24 07:23 07:06 20:48 Creatinine 3.20 H Estim Creat Clear Calc 29 Estimated GFR 20 L POC Capillary Glucose 98 178 H 02/22/24 02/22/24 16:33 11:25 Creatinine Estim Creat Clear Calc Estimated GFR POC Capillary Glucose 184 H 124 H Preliminary micro results at discharge 02/20/24 12:12 Blood Culture - Preliminary Blood 02/20/24 12:03 Blood Culture - Preliminary Blood Discharge Plan Discharge Attending physician on discharge: Yo Hutson Consulting providers: Adriana Hernandez Discharging Clinician: Cira Sánchez Patient Disposition: Home, Self-Care Activity: may shower Diet: diabetic Wound Care Instructions: follow printed instructions Discharge Instructions: Please keep wound clean and dry. Wash with soap and water. Continue antibiotics and make an hua with pcp for a close follow up. Your kidney function was starting to Improve when you were discharged but still was not back to your normal. You will need a close follow up with PCP to monitor kidney function. Please avoid meds like aleve and ibuprofen. Drink lots of water Patient Instructions: Antibiotic Form Stand Alone Forms: General Discharge Information Follow-up/Referrals: John Moreno M.D. [Primary Care Provider] - 1 Week (please follow up for your wound and repeat kidney function) Discharge Medications: New hydrocodone-acetaminophen 5-325 mg Tablet 1 tablet PO Q6H PRN (Reason: Pain Rated 4-6) Qty: 12 0RF Continued carvedilol 25 mg tablet 25 mg PO BID nifedipine 90 mg tablet extended release 90 mg PO DAILY spironolactone 25 mg tablet 25 mg PO DAILY lisinopril 40 mg tablet 40 mg PO DAILY insulin glargine [Lantus U-100 Insulin] 100 unit/mL solution 15 unit SUBCUT HS Jardiance 10 mg Tablet 10 mg PO DAILY Held furosemide 20 mg tablet 20 mg PO BID Hold Instructions: Resume on 03/06/24. hold for now until kidney function improves and medication is restarted per your PCP Other Ambulatory Orders: Basic Metabolic Panel (Routine) Timeframe: 1 Week Location: Determined by Patient Ordered By: Cira Sánchez Date of admission: 02/22/24 13:00 Primary Care Provider: John Moreno Admitting Provider: Reilly Love Attending physician on admission: Reilly Love Condition: Stable Quality VTE Prophylaxis VTE prophylaxis: mechanical ordered Hospitalist MIPS Heart Failure (Exclusion) Patient has history of Heart Transplant or Left Ventricular Assistive Device?: No IF YES, STOP HERE Heart Failure (Qualifier) Patient has current or prior documentation of LVEF less than or equal to 40%, or mod/servere depressed LVSF?: No IF NO, STOP HERE
[2024-02-23 11:31] LABS: Glucose Point of Care 183 mg/dl (65-105)
[2024-02-23 12:12] LABS: Vancomycin Trough 13.5 ug/mL (10.0-20.0)
== END 2024-02-23 13:15 | disposition home or self-care (01) | DRG 603 ==
LOC: ANHED 12:47 → ANH3MEDSUR 13:21
PROVIDERS: Student in an Organized Health Care Education/Training Program; Admitting Provider General Practice; Emergency Provider Physician Assistant; PCP Family Medicine; Visit Provider General Practice
DX: L03.314 Cellulitis of groin (principal); N17.9 Acute kidney failure, unspecified; L02.214 Cutaneous abscess of groin; I12.9 Hypertensive chronic kidney disease with stage 1 through stage 4 chronic kidney disease, or unspecified chronic kidney disease; N18.30 Chronic kidney disease, stage 3 unspecified; E11.22 Type 2 diabetes mellitus with diabetic chronic kidney disease; E78.5 Hyperlipidemia, unspecified; E11.42 Type 2 diabetes mellitus with diabetic polyneuropathy; Z79.4 Long term (current) use of insulin; Z91.141 Patient's other noncompliance with medication regimen due to financial hardship
CPT/HCPCS: 36415; 72192; 80048; 80053; 80202; 81001; 81050; 82550; 82565; 82570; 82948; 83036; 83605; 84156; 84300; 85025; 86140; 87040; 96361; 96365; 96366; 96374; 96375; 99285; A9270; G0378; J1171; J1815; J2004; J2060; J2270; J2405; J3370; J7030